=== PATIENT | female | born 1980 | race Caucasian/White ===

== ENCOUNTER 2017-05-16 19:58 | Emergency (ER) | payer OTHER ==
[~2017-05-16] VITALS: Ht 165.1 cm; Wt 65.3 kg
[~2017-05-16 19:58] MED LIST: DOXYCYCLINE HY100 M4 PO; GLIMEPIRIDE 4MG4 MG PO; LISINOPRIL2.5 M1 PO; METFORMIN500 MG PO; NORCO 325 MG-51 TAB PO; PROVENTIL0.09 MG/A1 IH; TESSALON PERLE200 MG PO; ZITHROMAX Z PA250 MG PO; ZOCOR20 MG PO; ZOLOFT100 MG PO
[2017-05-16 20:13] LABS: HEMOGLOBIN 17.2 g/dL (12.2-16.2); LYMPH # 4.2 K/mm3 (0.7-4.5); LYMPH % 50.1 % (10-50.0)
[2017-05-16] MEDS ORDERED: PREMARIN V0.625 MG/G VG (20:14)
[2017-05-16] MEDS ORDERED: LANTUS INS100 UNITS/ SC (20:21)
--- OUTSIDE RECORDS SUMMARY | 2017-05-16 20:22 | External Medical Summary Rpt | CCD ---
Author Author , GIOVANNY BALTAZAR Address Unknown Phone [email or web address] Purpose Continuity of Care Document - through 2016 Problems Code Diagnosis DOS Provider Status L02.619 CUTANEOUS ABSCESS OF UNSPECIFIED FOOT W55.01XA BITTEN BY CAT, INITIAL ENCOUNTER
--- OUTSIDE RECORDS SUMMARY | 2017-05-16 20:22 | External Medical Summary Rpt | CCD ---
Demographics Preferred Language Greenlandic Marital Status Unknown Sabianism Affiliation Unknown Race Unknown Ethnic Group Unknown Author Author , GIOVANNY BALTAZAR Address Unknown Phone Immunization No patient found.
--- OUTSIDE RECORDS SUMMARY | 2017-05-16 20:22 | External Medical Summary Rpt ---
Author Author GIOVANNY Flores, [employer] Organization [employer] Address Unknown Phone Unavailable
--- OUTSIDE RECORDS SUMMARY | 2017-05-16 20:22 | External Medical Summary Rpt | CCD ---
Author Author , GIOVANNY BALTAZAR Address Unknown Phone [email or web address] Purpose Continuity of Care Document - through 2016 Problems Code Diagnosis DOS Provider Status L02.619 CUTANEOUS ABSCESS OF UNSPECIFIED FOOT W55.01XA BITTEN BY CAT, INITIAL ENCOUNTER
--- OUTSIDE RECORDS SUMMARY | 2017-05-16 20:22 | External Medical Summary Rpt | CCD ---
Author Author [employer] Organization [employer] Address Unknown Phone Unavailable Purpose Continuity of Care Document - through 2016
--- OUTSIDE RECORDS SUMMARY | 2017-05-16 20:22 | External Medical Summary Rpt | CCD ---
Demographics Preferred Language Croatian Marital Status Unknown Hindu Affiliation Unknown Race Unknown Ethnic Group Unknown Author Author , GIOVANNY BALTAZAR Address Unknown Phone Immunization No patient found.
[2017-05-16 20:37] LABS: BUN 11 mg/dL (7-18); GFR (ESTIMATED) 81 ML/MIN (59-)
[2017-05-16 21:07] LABS: NEUTROPHILS 39 % (42-76)
--- NOTE | 2017-05-16 21:23 | Emergency Room Report ---
History of Present Illness Time Seen by 2004 Presenting Problem in Triage Pt arrived:Walked Presenting Problem:C/O NUMBNESS AND TINGLING IN L ARM AND FEELING FLUSHED IN FACE. FAMILY STATES THAT HER SPEECH WAS SLURRED. PT ALSO C/O DIZZINESS. 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 N Clinical Suspician of Infection? N Mental Status: 1 - Regular (Normal Baseline) Sepsis Risk: Have you (or family members/close friends) recently traveled outside the [place]? N If Yes, where/when: Have you had exposure to infectious disease within the past month? N TB? Other? Specify: Source patient, RN notes reviewed, family, old records Exam Limitations no limitations Comment pt with lt upper ext tingling this pm and then again this pm around 1500 with facial flushing and slurred speech - sx improved but still present Cardiac Chest Pain Chest pain indicative of cardiac No Timing/Duration this evening Severity moderate ALLERGIES Coded Allergies: Penicillins (05/16/17) Home Medications Reported Medications Metformin HCL (Metformin) 500 MG PO BID ESTROGENS, CONJUGATED (Premarin) 0.625 MG VG MWF Insulin Glargine (Lantus Insulin Vial) 10 UNITS SC DAILY History Medical History General CAD? No Angina: No [place]: No Hypertension? No Hyperlipidemia? No CHF? No DVT? No PE? No COPD? No Asthma? No Anemia? No GERD? No Gastric ulcers? No GI Bleed? No Hernia? No Thyroid Problems? No Hypothyroidism? No CVA? No Seizures? No Diabetes? Yes Insulin Dependent: Yes Insulin Pump: No Home FSBS? Yes Renal Insuffiency? No End Stage Renal Disease? No UTI? No Stones? No BPH? No GB Disease: No Nephritic Syndrome? No Asplenia? No Hepatitis? No Sickle Cell Disease? No Arthritis? No Migraines? No Cataracts? No Glaucoma? No MRSA? No HIV? No TB? No Anxiety? No Depression? No Cancer? Yes Site: OVARIAN More? 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 Respiratory denies cough, denies shortness of breath, denies wheezing Cardiovascular denies chest pain, denies syncope Gastrointestinal denies abdominal pain, denies diarrhea, denies vomiting Genitourinary denies: dysuria, frequency, hesitancy, hematuria. Musculoskeletal denies back pain, denies joint pain, denies joint swelling, denies neck pain Skin denies rash Psychiatric/Neurological see HPI, denies seizure, tingling Physical Exam Vital Signs Vital Signs Date Time Temp Pulse Resp B/P Pulse O2 O2 Flow FiO2 Ox Delivery Rate 05/16 2120 98.0 96 18 133/78 97 05/16 2000 98.4 103 20 143/88 96 - WBC >12,000 or <4,000 or 10% bands? 2 or more SIRS Criteria Met? B/P:133/78 MAP:106 Creatinine >2.0? UA output<0.5ml/kg/hr for 2 hrs? Platelet count >100,000? Lactate >2.0mmol/1? INR >1.2 or PTT > than 60 sec? Evidence of Organ Dysfunction? Provider documented clinical suspician of infection? N Sepsis Criteria Count: 2 Sepsis Risk: General Appearance no apparent distress Eye Exam - bilateral eye PERRL, bilateral eye EOMI Ear, Nose, Throat normal ENT inspection Neck supple, no def bruit Respiratory Status No: respiratory distress. Lung Sounds bilateral: lungs clear. 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 Yes NIH STROKE SCORE NIH STROKE SCORE Response Value 1a.Level of Consciousness ALERT 0 1b.LOC Questions ANSWERS BOTH CORRECTLY 0 1c.LOC Commands OBEYS BOTH CORRECTLY 0 2 .Best Gaze NORMAL 0 3 .Visual NO VISUAL LOSS 0 4 .Facial Palsy NORMAL 0 5a.Motor Arm Left NO DRIFT 0 5b.Motor Arm Right NO DRIFT 0 6a.Motor Leg Left NO DRIFT 0 6b.Motor Leg Right NO DRIFT 0 7 .Limb Ataxia ABSENT 0 8 .Sensory PARTIAL LOSS 1 9 .Best Language NO APHASIA 0 10.Dysarthria NORMAL ARTICULATION 0 ED.NIH11 NO NEGLECT 0 Total 1 Treatment Consideration t-PA ordered? No Exit section? Yes Medical Decision Making LABS/Meds/Orders Pt receiving controlled substance in ED? No Results/Orders Laboratory Tests 05/16/171999: Sodium 136, Potassium 4.0, Chloride 98, Carbon Dioxide 33 H, BUN 11, Creatinine 0.8, Estimated Creat Clear 99, Estimated GFR (MDRD) 81, Glucose 356 H, Calcium 9.5, Total Bilirubin 0.5, AST 8 L, ALT 26, Alkaline Phosphatase 81, Creatine Kinase 65, CK-MB (CK-2) Rel Index 0.8, CK and CKMB Interp < 0.5, Troponin I < 0.02, Total Protein 7.6, Albumin 4.3, Globulin 3.3 H, Albumin/Globulin Ratio 1.3, WBC 8.3, RBC 5.70 H, Hgb 17.2 H, Hct 49.1 H, MCV 86.1, RDW 12.4, Plt Count 285, MPV 8.1, Gran % 37.0, Gran # 3.1, Total Counted 100, Lymphocytes % 50.1 H, Monocytes % 9.4 H, Eosinophils % 2.6, Basophils % 1.0, Neutrophils 39 L, Lymphocytes (Manual) 51 H, Lymphocytes # 4.2, Monocytes (Manual) 8, Monocytes # 0.8, Eosinophils # 0.2, Eosinophils # (Manual) 1, Basophils # 0.1, Basophils # (Manual) 1, Platelet Estimate NORMAL, PUBS MCHC 34.9, MCH 30.1 Current Medication Orders Sig/Tray Start time Last Medication Dose Route Stop Time Status Admin Sodium Chloride 10 ML PRN PRN 05/16 2015 AC IV 05/17 2005 Orders Procedure Date/time Status DIET-NOTHING BY MOUTH 05/[address] HEAD W/O CONTRAST 05/16 2036 Active ELECTROCARDIOGRAM REQUEST 05/[address] HEAD REQ 05/16 2007 Complete CHEST(2 VIEWS-NOT PORTABLE) 05/16 2007 Active IV SALINE LOCK 05/16 2007 Active CBC WITH AUTO DIFF 05/16 2007 Complete CARDIAC ENZYMES 05/16 2007 Complete CHEM 12 PROFILE 05/16 2007 Complete DIFFERENTIAL-WBC 05/16 2000 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 ST/Twave chgs XRAY/CT/US XRAY/CT/US CT head CT interpretation by discussed w/radiologist Time results known: 2122 CT Results normal/NAD Departure Departure Time of Disposition 2147 Disposition DC/[facility]FER from ER [facility] Clinical Impression Primary Impression: CVA (cerebral vascular accident) Qualifiers: CVA mechanism: unspecified Qualified Code: I63.9 - Cerebral infarction, unspecified Secondary Impressions: Diabetes mellitus Qualifiers: Diabetes mellitus type: type 1 Diabetes mellitus complication status: with unspecified complications Qualified Code: E10.8 - Type 1 diabetes mellitus with unspecified complications Condition STABLE Referrals KALE SOSA (Family) discussed with stroke ED Critical Care Critical Care Yes Time spent 30-74 min Vital system(s) involved: Central Nervous System I was present at bedside for Coordinating pt's care, During my initial exam, Reviewing old records, Discussing pt condition, For re-examinations, Examining radiographs at 2202
--- NOTE | 2017-05-16 21:23 | Emergency Room Report ---
History of Present Illness Time Seen by 2004 Presenting Problem in Triage Pt arrived:Walked Presenting Problem:C/O NUMBNESS AND TINGLING IN L ARM AND FEELING FLUSHED IN FACE. FAMILY STATES THAT HER SPEECH WAS SLURRED. PT ALSO C/O DIZZINESS. 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 N Clinical Suspician of Infection? N Mental Status: 1 - Regular (Normal Baseline) Sepsis Risk: Have you (or family members/close friends) recently traveled outside the [place]? N If Yes, where/when: Have you had exposure to infectious disease within the past month? N TB? Other? Specify: Source patient, RN notes reviewed, family, old records Exam Limitations no limitations Comment pt with lt upper ext tingling this pm and then again this pm around 1500 with facial flushing and slurred speech - sx improved but still present Cardiac Chest Pain Chest pain indicative of cardiac No Timing/Duration this evening Severity moderate ALLERGIES Coded Allergies: Penicillins (05/16/17) Home Medications Reported Medications Metformin HCL (Metformin) 500 MG PO BID ESTROGENS, CONJUGATED (Premarin) 0.625 MG VG MWF Insulin Glargine (Lantus Insulin Vial) 10 UNITS SC DAILY History Medical History General CAD? No Angina: No TN: No Hypertension? No Hyperlipidemia? No CHF? No DVT? No PE? No COPD? No Asthma? No Anemia? No GERD? No Gastric ulcers? No GI Bleed? No Hernia? No Thyroid Problems? No Hypothyroidism? No CVA? No Seizures? No Diabetes? Yes Insulin Dependent: Yes Insulin Pump: No Home FSBS? Yes Renal Insuffiency? No End Stage Renal Disease? No UTI? No Stones? No BPH? No GB Disease: No Nephritic Syndrome? No Asplenia? No Hepatitis? No Sickle Cell Disease? No Arthritis? No Migraines? No Cataracts? No Glaucoma? No MRSA? No HIV? No TB? No Anxiety? No Depression? No Cancer? Yes Site: OVARIAN More? 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 Respiratory denies cough, denies shortness of breath, denies wheezing Cardiovascular denies chest pain, denies syncope Gastrointestinal denies abdominal pain, denies diarrhea, denies vomiting Genitourinary denies: dysuria, frequency, hesitancy, hematuria. Musculoskeletal denies back pain, denies joint pain, denies joint swelling, denies neck pain Skin denies rash Psychiatric/Neurological see HPI, denies seizure, tingling Physical Exam Vital Signs Vital Signs Date Time Temp Pulse Resp B/P Pulse O2 O2 Flow FiO2 Ox Delivery Rate 05/16 2120 98.0 96 18 133/78 97 05/16 2000 98.4 103 20 143/88 96 - WBC >12,000 or <4,000 or 10% bands? 2 or more SIRS Criteria Met? B/P:133/78 MAP:106 Creatinine >2.0? UA output<0.5ml/kg/hr for 2 hrs? Platelet count >100,000? Lactate >2.0mmol/1? INR >1.2 or PTT > than 60 sec? Evidence of Organ Dysfunction? Provider documented clinical suspician of infection? N Sepsis Criteria Count: 2 Sepsis Risk: General Appearance no apparent distress Eye Exam - bilateral eye PERRL, bilateral eye EOMI Ear, Nose, Throat normal ENT inspection Neck supple, no def bruit Respiratory Status No: respiratory distress. Lung Sounds bilateral: lungs clear. 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 Yes NIH STROKE SCORE NIH STROKE SCORE Response Value 1a.Level of Consciousness ALERT 0 1b.LOC Questions ANSWERS BOTH CORRECTLY 0 1c.LOC Commands OBEYS BOTH CORRECTLY 0 2 .Best Gaze NORMAL 0 3 .Visual NO VISUAL LOSS 0 4 .Facial Palsy NORMAL 0 5a.Motor Arm Left NO DRIFT 0 5b.Motor Arm Right NO DRIFT 0 6a.Motor Leg Left NO DRIFT 0 6b.Motor Leg Right NO DRIFT 0 7 .Limb Ataxia ABSENT 0 8 .Sensory PARTIAL LOSS 1 9 .Best Language NO APHASIA 0 10.Dysarthria NORMAL ARTICULATION 0 ED.NIH11 NO NEGLECT 0 Total 1 Treatment Consideration t-PA ordered? No Exit section? Yes Medical Decision Making LABS/Meds/Orders Pt receiving controlled substance in ED? No Results/Orders Laboratory Tests 05/16/171999: Sodium 136, Potassium 4.0, Chloride 98, Carbon Dioxide 33 H, BUN 11, Creatinine 0.8, Estimated Creat Clear 99, Estimated GFR (MDRD) 81, Glucose 356 H, Calcium 9.5, Total Bilirubin 0.5, AST 8 L, ALT 26, Alkaline Phosphatase 81, Creatine Kinase 65, CK-MB (CK-2) Rel Index 0.8, CK and CKMB Interp < 0.5, Troponin I < 0.02, Total Protein 7.6, Albumin 4.3, Globulin 3.3 H, Albumin/Globulin Ratio 1.3, WBC 8.3, RBC 5.70 H, Hgb 17.2 H, Hct 49.1 H, MCV 86.1, RDW 12.4, Plt Count 285, MPV 8.1, Gran % 37.0, Gran # 3.1, Total Counted 100, Lymphocytes % 50.1 H, Monocytes % 9.4 H, Eosinophils % 2.6, Basophils % 1.0, Neutrophils 39 L, Lymphocytes (Manual) 51 H, Lymphocytes # 4.2, Monocytes (Manual) 8, Monocytes # 0.8, Eosinophils # 0.2, Eosinophils # (Manual) 1, Basophils # 0.1, Basophils # (Manual) 1, Platelet Estimate NORMAL, PUBS MCHC 34.9, MCH 30.1 Current Medication Orders Sig/Tray Start time Last Medication Dose Route Stop Time Status Admin Sodium Chloride 10 ML PRN PRN 05/16 2015 AC IV 05/17 2005 Orders Procedure Date/time Status DIET-NOTHING BY MOUTH 05/[address] HEAD W/O CONTRAST 05/16 2036 Active ELECTROCARDIOGRAM REQUEST 05/[address] HEAD REQ 05/16 2007 Complete CHEST(2 VIEWS-NOT PORTABLE) 05/16 2007 Active IV SALINE LOCK 05/16 2007 Active CBC WITH AUTO DIFF 05/16 2007 Complete CARDIAC ENZYMES 05/16 2007 Complete CHEM 12 PROFILE 05/16 2007 Complete DIFFERENTIAL-WBC 05/16 2000 Complete CM/EKG CM/round up ring hand Rhythm Normal Sinus Rhythm EKG non-spec. ST/Twave chgs XRAY/CT/US XRAY/CT/US CT head CT interpretation by discussed w/radiologist Time results known: 2122 CT Results normal/NAD Departure Departure Time of Disposition 2147 Disposition DC/XFER from ER to [facility] Clinical Impression Primary Impression: CVA (cerebral vascular accident) Qualifiers: CVA mechanism: unspecified Qualified Code: I63.9 - Cerebral infarction, unspecified Secondary Impressions: Diabetes mellitus Qualifiers: Diabetes mellitus type: type 1 Diabetes mellitus complication status: with unspecified complications Qualified Code: E10.8 - Type 1 diabetes mellitus with unspecified complications Condition STABLE Referrals KALE SOSA (Family) discussed with stroke ED Critical Care Critical Care Yes Time spent 30-74 min Vital system(s) involved: Central Nervous System I was present at bedside for Coordinating pt's care, During my initial exam, Reviewing old records, Discussing pt condition, For re-examinations, Examining radiographs at 2202
[2017-05-16 22:07] VITALS: BP 153/103
--- NOTE | 2017-05-17 05:34 | RADIOLOGY REPORT PS360 ---
CHEST(2 VIEWS-NOT PORTABLE) HISTORY: C/O NUMBNESS AND TINGLING TO LEFT ARM ORDERING PHYSICIAN: Sandra Aguirre MD PATIENT AGE: 36 years COMPARISON: None available FINDINGS: The cardiomediastinal silhouette and pulmonary vascularity are within normal limits. The lungs are clear without infiltrates, suspicious nodules, or pleural effusions. No acute bony abnormalities. IMPRESSION: Negative chest, no acute finding
--- NOTE | 2017-05-17 05:36 | RADIOLOGY REPORT PS360 ---
CT HEAD W/O CONTRAST HISTORY: NUMBNESS AND TINGLING TO LEFT ARM ORDERING PHYSICIAN: Sandra Aguirre MD PATIENT AGE: 36 years COMPARISON: None TECHNIQUE: Axial images obtained without contrast. Brain and bone windows reviewed. FINDINGS: No midline shift, mass effect, intracranial hemorrhage, hydrocephalus, or extra-axial fluid collection is evident. The calvarium has an unremarkable appearance. No mastoid effusion. The visualized paranasal sinuses are unremarkable. IMPRESSION: 1. No acute intracranial findings. 2. There is no evidence of intracranial hemorrhage, focal mass, or acute territorial infarction. A negative CT does not exclude an acute CVA. A follow-up head CT or MRI is recommended if neurological symptoms persist
== END 2017-05-16 22:10 | disposition short-term general hospital (02) ==
LOC: ER 19:58
PROVIDERS: Emergency Medicine
DX: I63.9 Cerebral infarction, unspecified (principal); E10.9 Type 1 diabetes mellitus without complications; Z79.4 Long term (current) use of insulin; F17.210 Nicotine dependence, cigarettes, uncomplicated; R29.701 NIHSS score 1